=== PATIENT | male | born 2000 | race Caucasian/White ===

== ENCOUNTER 2019-10-19 01:11 | Emergency (ER) | payer OTHER, SELFPAY ==
[2019-10-19 01:15] VITALS: TEMP 37.8; O2SAT 98
[2019-10-19 01:19] VITALS: BP 129/86; PULSE 84; RESP 20; TEMP 37.8; O2SAT 98
[2019-10-19 01:20] VITALS: BP 129/86; PULSE 84; RESP 20; TEMP 37.8; O2SAT 98
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
[2019-10-19] MEDS: NEOMYCIN/POLYMYXIN/HYDROCORT OT SUSP 10 ML BTL (*BKC) 3 DROP EACH EAR (01:55)
[2019-10-19] MEDS: SILVER SULFADIAZINE 1% CR 50 GM JAR (*BKC) 1 APPLIC TOPICAL (01:55)
[2019-10-19] MEDS: AMOXICILLIN/CLAVULANATE K 875-125 MG TAB 1 TABLET PO (01:58)
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
[2019-10-19 02:08] VITALS: BP 122/71; PULSE 70; RESP 20; TEMP 37.2; O2SAT 99
[2019-10-19 02:14] VITALS: BP 122/71; PULSE 74; RESP 18; TEMP 37.2; O2SAT 97
[2019-10-19] MEDS: TETANUS,DIPHTHERIA,AC PERTUSSIS ADULT 0.5 ML (ADACEL) IM (02:15)
== END 2019-10-19 02:28 | disposition home or self-care (01) ==
PROVIDERS: Emergency Provider Family Medicine
DX: H60.92 Unspecified otitis externa, left ear (principal); H66.92 Otitis media, unspecified, left ear; T25.021A Burn of unspecified degree of right foot, initial encounter; X10.2XXA Contact with fats and cooking oils, initial encounter; T70.0XXA Otitic barotrauma, initial encounter
CPT/HCPCS: 16025; 90471; 90715; 99283; A9270

== ENCOUNTER 2020-11-30 21:47 | Emergency (ER) | payer BC, SELFPAY ==
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
[2020-11-30 21:59] VITALS: BP 150/90; PULSE 90; RESP 20; TEMP 37; O2SAT 96
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
[2020-11-30] MEDS: TETANUS,DIPHTHERIA,AC PERTUSSIS ADULT 0.5 ML (ADACEL) IM (22:35)
[2020-11-30 22:42] VITALS: BP 140/88; PULSE 72; RESP 18; TEMP 36.1; O2SAT 96
== END 2020-11-30 22:50 | disposition home or self-care (01) ==
PROVIDERS: Emergency Provider Emergency Medicine
DX: S62.306A Unspecified fracture of fifth metacarpal bone, right hand, initial encounter for closed fracture (principal); W22.8XXA Striking against or struck by other objects, initial encounter
CPT/HCPCS: 29125; 73130; 90471; 90715; 99283; 99284

== ENCOUNTER 2020-12-09 18:35 | Outpatient (CLI) | payer BC, SELFPAY ==
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
== END 2020-12-09 18:36 | disposition home or self-care (01) ==
LOC: CHSIMG 18:37
PROVIDERS: PCP Nurse Practitioner Family; Visit Provider Nurse Practitioner Family
DX: S62.336D Displaced fracture of neck of fifth metacarpal bone, right hand, subsequent encounter for fracture with routine healing (principal)
CPT/HCPCS: 73130

== ENCOUNTER 2022-12-14 13:17 | Outpatient (NON) | payer OTHER, SELFPAY ==
[2022-12-16 07:44] LABS: Trichomonas Vag PCR NOT DETECTED (NOT DETECTE)
[2022-12-16 08:07] LABS: Chlamydia trachomatis NOT DETECTED (NOT DETECTE); Neisseria gonorrhoeae PCR NOT DETECTED (NOT DETECTE)
== END 2022-12-14 13:18 | disposition home or self-care (01) ==
LOC: CHSLAB 13:18
PROVIDERS: Visit Provider Nurse Practitioner Family
DX: Z11.3 Encounter for screening for infections with a predominantly sexual mode of transmission (principal)
CPT/HCPCS: 87491; 87591; 87661